=== PATIENT | male | born 1975 | race Hispanic/Latino ===

== ENCOUNTER 2019-09-28 15:33 | Emergency (ER) | payer OTHER ==
[~2019-09-28] VITALS: Ht 188 cm; Wt 100.0 kg
[~2019-09-28 15:33] MED LIST: AMOXICILLIN875 MG PO; MUCINEX600 MG PO
[2019-09-28] MEDS ORDERED: OFLOXACIN0.3 % OS (15:44)
[2019-09-28 16:20] VITALS: BP 122/92
== END 2019-09-28 16:16 | disposition home or self-care (01) | DRG 125 ==
LOC: ED 15:33
DX: H57.12 Ocular pain, left eye (principal)

== ENCOUNTER 2024-11-23 10:17 | Emergency (ER) | payer SELFPAY ==
[2024-11-23] VITALS (7 sets, daily range): BP systolic 114–155; BP diastolic 81–103
[~2024-11-23] VITALS: Ht 188 cm; Wt 112.0 kg
[~2024-11-23 10:17] MED LIST changes: +OFLOXACIN0.3 % OS
[2024-11-23] MEDS ORDERED: Diph, Acellular Pertussis, Tet 0.5 ML/VIAL (Tdap) SDV IM ONE (11:00)
[2024-11-23] MEDS ORDERED: LIDOcaine HCl 1% (Local Anesth.) 20 ML VIAL STI STA (11:18)
[2024-11-23] MEDS ORDERED: POVIDONE IODINE 0.5 OZ/BTL TOP ONE (11:20)
== END 2024-11-23 13:17 | disposition home or self-care (01) | DRG 605 ==
LOC: ED 10:17
PROC: 0HQ1XZZ Repair Face Skin, External Approach (ICD-10-PCS; principal; 2024-11-23)
DX: S01.81XA Laceration without foreign body of other part of head, initial encounter (principal); W22.8XXA Striking against or struck by other objects, initial encounter; Y92.009 Unspecified place in unspecified non-institutional (private) residence as the place of occurrence of the external cause
CPT/HCPCS: 90715